=== PATIENT | male | born 1960 | race American Indian/Alaskan Native ===

== ENCOUNTER 2016-09-22 17:07 | Emergency (ER) | payer SELFPAY ==
[2016-09-22 18:20] VITALS: BP 152/106
[2016-09-22] MEDS ORDERED: FLEXERIL PO ONE (18:49)
[2016-09-22] MEDS ORDERED: TORADOL IM ONE (18:49)
--- NOTE | 2016-09-22 19:59 | Emergency Department Report ---
ED Upper Extremity Inj HPI - General Chief Complaint: Extremity Injury, Upper Stated Complaint: SHOULDER PAIN Time Seen by Provider: 09/22/16 18:44 Source: patient Mode of arrival: Ambulatory Limitations: No Limitations - History of Present Illness Initial Comments: right shoulder pain x 1 week hx of chronic shoulder pain same shoulder x 7 yrs, this is an acute exacerbation of same pt denies new injury fall or trauma, pain described as 4/10 aching no weakness no paresthesia no swelling no weakness Complaint: Injury to:: right, shoulder Onset/Timin -: week(s) Other Extremity Injury: Shoulder: Right (no new injury ) Other Injuries: none Handedness: right Place: home Severity scale (0 -10): 4 Improves With: rest Worsens With: movement of extremity Associated Symptoms: denies: weakness, numbness, neck pain, suspects foreign body, nausea/vomiting, heard/felt popping sensat - Related Data Previous Rx's Medication Instructions Recorded Last Taken Type Ibuprofen [Motrin] 800 mg PO Q8H #60 tablet 12/23/13 Unknown Rx traMADol [Ultram 50 MG tab] 50 mg PO Q6HR PRN #30 tablet 12/23/13 Unknown Rx Famotidine [Pepcid] 20 mg PO BID #30 tablet 06/17/15 Unknown Rx Prednisone [predniSONE 10 mg 10 mg PO .TAPER #1 tab.ds.pk 06/17/15 Unknown Rx (6-Day Pack, 21 Tabs)] hydrOXYzine HCL [Atarax] 25 mg PO Q6HR PRN #20 tablet 06/17/15 Unknown Rx Allergies Allergy/AdvReac Type Severity Reaction Status Date / Time No Known Allergies Allergy Verified 09/22/16 18:20 ED Review of Systems ROS: Stated complaint: SHOULDER PAIN Other details as noted in HPI Constitutional: denies: chills, fever Eyes: denies: eye pain, eye discharge, vision change ENT: denies: ear pain, throat pain Respiratory: denies: cough, shortness of breath, wheezing Cardiovascular: denies: chest pain, palpitations Endocrine: no symptoms reported Gastrointestinal: denies: abdominal pain, nausea, diarrhea Genitourinary: denies: urgency, dysuria Musculoskeletal: myalgia. denies: back pain, joint swelling, arthralgia Skin: denies: rash, lesions Neurological: denies: headache, weakness, paresthesias Psychiatric: denies: anxiety, depression Hematological/Lymphatic: denies: easy bleeding, easy bruising ED Past Medical Hx - Past Medical History Hx Hypertension: Yes - Surgical History Past Surgical History?: No - Social History Smoking Status: Never Smoker Substance Use Type: None - Medications Home Medications: Home Medications Medication Instructions Recorded Confirmed Last Taken Type Ibuprofen [Motrin] 800 mg PO Q8H #60 tablet 12/23/13 Unknown Rx traMADol [Ultram 50 MG tab] 50 mg PO Q6HR PRN #30 tablet 12/23/13 Unknown Rx Famotidine [Pepcid] 20 mg PO BID #30 tablet 06/17/15 Unknown Rx Prednisone [predniSONE 10 mg 10 mg PO .TAPER #1 tab.ds.pk 06/17/15 Unknown Rx (6-Day Pack, 21 Tabs)] hydrOXYzine HCL [Atarax] 25 mg PO Q6HR PRN #20 tablet 06/17/15 Unknown Rx ED Physical Exam - General Limitations: No Limitations General appearance: alert, in no apparent distress - Head Head exam: Present: atraumatic, normocephalic - Eye Eye exam: Present: normal appearance - ENT ENT exam: Present: mucous membranes moist - Neck Neck exam: Present: normal inspection - Respiratory Respiratory exam: Present: normal lung sounds bilaterally. Absent: respiratory distress - Cardiovascular Cardiovascular Exam: Present: regular rate, normal rhythm. Absent: systolic murmur, diastolic murmur, rubs, gallop - GI/Abdominal GI/Abdominal exam: Present: soft, normal bowel sounds - Rectal Rectal exam: Present: deferred - Extremities Exam Extremities exam: Present: normal inspection - Expanded Upper Extremity Exam Right Shoulder Exam: Present: normal inspection. Absent: tenderness, swelling, abrasion, laceration, ecchymosis, deformity, crepidus, dislocation, erythema, tenderness over AC joint Elbow exam: Present: normal inspection, full ROM Forearm Wrist exam: Present: normal inspection, full ROM Hand Wrist exam: Present: normal inspection, full ROM Neuro motor exam: Present: wrist extension intact, thumb opposition intact, thumb IP flexion intact, thumb adduction intact, fingers 2-5 abduction intact Neurosensory exam: Present: 2-point discrimination, radial nerve intact, ulnar nerve intact, median nerve intact Vascular: Present: normal capillary refill, radial pulse, brachial pulse, ulnar pulse. Absent: vascular compromise, Pallo, pulse deficit radial art, pulse deficit ulnar art, pulse deficit brachial art - Back Exam Back exam: Present: normal inspection, full ROM. Absent: CVA tenderness (R), CVA tenderness (L), muscle spasm, paraspinal tenderness, vertebral tenderness - Neurological Exam Neurological exam: Present: alert, oriented X3, CN II-XII intact, normal gait, motor sensory deficit, reflexes normal - Psychiatric Psychiatric exam: Present: normal affect, normal mood - Skin Skin exam: Present: warm, dry, intact. 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 Critical care attestation.: If time is entered above; I have spent that time in minutes in the direct care of this critically ill patient, excluding procedure time. ED Disposition Clinical Impression: Chronic right shoulder pain Right shoulder strain Qualifiers: Encounter type: initial encounter Qualified Code(s): S46.911A - Strain of unspecified muscle, fascia and tendon at shoulder and upper arm level, right arm , initial encounter Disposition: TO HOME OR SELFCARE Is pt being admited?: No Does the pt Need Aspirin: No Condition: Good Instructions: Arthralgia (ED) Additional Instructions: follow up with Orthopedics Dr. Mae [phone] Referrals: PRIMARY CARE, [Primary Care Provider] - 3-5 Days Forms: Work/School Release Form(ED) Time of Disposition: 20:01
== END 2016-09-22 20:13 | disposition home or self-care (01) ==
LOC: ED 17:07
DX: S46.911A Strain of unspecified muscle, fascia and tendon at shoulder and upper arm level, right arm, initial encounter (principal); M25.511 Pain in right shoulder; G89.29 Other chronic pain; X58.XXXA Exposure to other specified factors, initial encounter; Y93.9 Activity, unspecified; Y92.9 Unspecified place or not applicable; Y99.9 Unspecified external cause status
CPT/HCPCS: 96372; 99282; J1885

== ENCOUNTER 2018-09-22 21:42 | Emergency (ER) | payer OTHER ==
--- NOTE | 2018-09-22 21:57 | Event Note ---
ED Screening Note Date of service: 09/22/18 Time: 21:52 ED Screening Note: This is a 57 y.o. M. that presents to the ER with right sided abdominal pain for 45 minutes. Reports pain started on back and radiated to right flank. PMH of umbilical hernia This initial assessment/diagnostic orders/clinical plan/treatment(s) is/are subject to change based on patients health status, clinical progression and re- assessment by fellow clinical providers in the ED. Further treatment and workup at subsequent clinical providers discretion. Patient/guardian urged not to elope from the ED as their condition may be serious if not clinically assessed and managed. Initial orders include: Labs and CT of abdomen and pelvis
[2018-09-22 22:08] LABS: Basophils % (Auto) 0.6 % (0.0-1.8); Eosinophils # (Auto) 0.4 K/mm3 (0.0-0.4); Hematocrit 43.4 % (35.5-45.6); Hemoglobin 14.7 gm/dl (11.8-15.2); Lymphocytes # (Auto) 2.8 K/mm3 (1.2-5.4); Lymphocytes % (Auto) 48.4 % (13.4-35.0); Mean Corpuscular HGB Conc 34 % (32-34); Mean Corpuscular Volume 89 fl (84-94); Monocytes # (Auto) 0.6 K/mm3 (0.0-0.8); Monocytes % (Auto) 10.1 % (0.0-7.3); Platelet Count 266 K/mm3 (140-440); Red Blood Count 4.87 M/mm3 (3.65-5.03); Red Cell Distribution Width 14.8 % (13.2-15.2)
[2018-09-22 22:31] LABS: Alanine Aminotransferase 27 units/L (7-56); Albumin 3.8 g/dL (3.9-5); BUN/Creatinine Ratio 11; Blood Urea Nitrogen 13 mg/dL (9-20); Hemolysis Index 6
[2018-09-22] MEDS ORDERED: MORPHINE IV ONE (23:39)
[2018-09-22] MEDS ORDERED: ZOFRAN IV ONE (23:39)
[2018-09-22] MEDS ORDERED: NACL 0.9% 1000 ML 1,000 ML IV ONE (23:39)
[2018-09-23 00:28] LABS: Bilirubin,Urine NEG (Negative); Blood,Urine SM (Negative); Color,Urine Yellow (Yellow); Mucus,Urine FEW /HPF; Protein,Urine <15 mg/dL mg/dL (Negative); Urobilinogen,Urine < 2.0 mg/dL (<2.0)
[2018-09-23] MEDS ORDERED: BENADRYL IV ONE (00:34)
[2018-09-23] MEDS ORDERED: TORADOL IV ONE (00:34)
[2018-09-23] MEDS ORDERED: TORADOL ONE (00:37)
[2018-09-23] MEDS ORDERED: BENADRYL ONE (00:37)
[2018-09-23] MEDS ORDERED: REGLAN IV ONE (00:51)
[2018-09-23] MEDS ORDERED: MORPHINE IV ONE (00:51)
--- NOTE | 2018-09-23 01:11 | Cat Scan Report ---
. CT of the abdomen and pelvis with contrast INDICATION: Right-sided abdominal pain COMPARISON: None FINDINGS: Lung bases are clear. One or 2 small hepatic cysts are seen. Spleen, pancreas, adrenal glan ds and kidneys show no significant abnormalities with small renal cysts seen and a 3 mm nonobstructin g stone in the mid right kidney. No definite gallbladder or biliary tree abnormality. No fluid or jaswant nopathy in the upper abdomen. There is slight vascular calcification without aneurysm. Small umbilica l hernia contains fat. CT of the pelvis shows a normal appendix. There is moderate sigmoid diverticulosis without diverticul itis. Prostate may be minimally enlarged. No pelvic fluid or adenopathy. No bowel obstruction or sign ificant skeletal abnormality. There is slight right hydroureter however down to the right UVJ where t here is a 3 mm stone causing minimal if any obstruction. IMPRESSION: 3 mm right UVJ stone with minimal if any obstruction. Other incidental findings as descri bed. Automated exposure control was utilized to diminish radiation dose. Signer Name: Bladimir Guzmán MD Signed: 09/23/2018 1:06 AM Workstation Name: [id number]
[2018-09-23] MEDS ORDERED: FLOMAX PO ONE (01:38)
--- NOTE | 2018-09-23 01:38 | Emergency Department Report ---
ED Abdominal Pain HPI - General Chief Complaint: Abdominal Pain Stated Complaint: ABD PAIN Time Seen by Provider: 09/22/18 21:51 Source: patient Mode of arrival: Wheelchair Limitations: No Limitations - History of Present Illness Initial Comments: Patient is a 57-year-old -Faroese male with a history of hypertension and kidney stones presents to the ED with complaint of acute onset persistent severe right flank pain that radiates to the right lower quadrant and suprapubic area with nausea and vomiting for the last one now. Patient describes the pain as constant, sharp, persistent and throbbing. Patient denies hematuria, testicular pain, dysuria, urinary frequency and urgency, diarrhea, fever, chills, dizziness, chest pain, shortness of breath, traumatic injury or heavy lifting. MD Complaint: abdominal pain, flank pain, other (nausea and vomiting) -: Sudden, hour(s) (1) Location: RLQ, suprapubic, R flank Radiation: none, RLQ, suprapubic, R flank Migration to: no migration Severity: severe Severity scale (0 -10): 7 Quality: cramping, stabbing, aching, sharp Consistency: constant Improves With: nothing Worsens With: nothing Associated Symptoms: denies other symptoms, nausea, vomiting. denies: diarrhea, fever, chills, hematemesis, hematochezia, melena, hematuria, anorexia - Related Data Previous Rx's Medication Instructions Recorded Last Taken Type Ibuprofen [Motrin] 800 mg PO Q8H #60 tablet 12/23/13 Unknown Rx traMADol [Ultram 50 MG tab] 50 mg PO Q6HR PRN #30 tablet 12/23/13 Unknown Rx Famotidine [Pepcid] 20 mg PO BID #30 tablet 06/17/15 Unknown Rx Prednisone [predniSONE 10 mg 10 mg PO .TAPER #1 tab.ds.pk 06/17/15 Unknown Rx (6-Day Pack, 21 Tabs)] hydrOXYzine HCL [Atarax] 25 mg PO Q6HR PRN #20 tablet 06/17/15 Unknown Rx Cyclobenzaprine [Flexeril] 10 mg PO TID PRN #30 tablet 09/22/16 Unknown Rx Naproxen [Naprosyn TAB] 500 mg PO BID PRN #60 tablet 09/22/16 Unknown Rx Ketorolac [Toradol] 10 mg PO Q8H PRN #20 tablet 09/23/18 Unknown Rx Ondansetron [Zofran Odt] 4 mg PO Q6HR #20 tab.rapdis 09/23/18 Unknown Rx Oxycodone HCl/Acetaminophen 1 each PO Q6HR PRN #12 tablet 09/23/18 Unknown Rx [Percocet 7.5/325 mg] Tamsulosin [Flomax] 0.4 mg PO QDAY #7 cap 09/23/18 Unknown Rx Allergies Allergy/AdvReac Type Severity Reaction Status Date / Time No Known Allergies Allergy Verified 09/22/16 18:20 ED Review of Systems ROS: Stated complaint: ABD PAIN Other details as noted in HPI Comment: All other systems reviewed and negative Constitutional: denies: chills, fever Eyes: denies: eye pain, eye discharge, vision change ENT: denies: ear pain, throat pain Respiratory: denies: cough, shortness of breath, wheezing Cardiovascular: denies: chest pain, palpitations Endocrine: no symptoms reported Gastrointestinal: abdominal pain (right flank, RLQ and suprapubic area), nausea, vomiting. denies: diarrhea Genitourinary: denies: urgency, dysuria Musculoskeletal: denies: back pain, joint swelling, arthralgia Skin: denies: rash, lesions Neurological: denies: headache, weakness, paresthesias Psychiatric: denies: anxiety, depression Hematological/Lymphatic: denies: easy bleeding, easy bruising ED Past Medical Hx - Past Medical History Previous Medical History?: Yes Hx Hypertension: Yes Hx Kidney Stones: Yes Additional medical history: hernia - Surgical History Past Surgical History?: No - Social History Smoking Status: Never Smoker Substance Use Type: None - Medications Home Medications: Home Medications Medication Instructions Recorded Confirmed Last Taken Type Ibuprofen [Motrin] 800 mg PO Q8H #60 tablet 12/23/13 Unknown Rx traMADol [Ultram 50 MG tab] 50 mg PO Q6HR PRN #30 tablet 12/23/13 Unknown Rx Famotidine [Pepcid] 20 mg PO BID #30 tablet 06/17/15 Unknown Rx Prednisone [predniSONE 10 mg 10 mg PO .TAPER #1 tab.ds.pk 06/17/15 Unknown Rx (6-Day Pack, 21 Tabs)] hydrOXYzine HCL [Atarax] 25 mg PO Q6HR PRN #20 tablet 06/17/15 Unknown Rx Cyclobenzaprine [Flexeril] 10 mg PO TID PRN #30 tablet 09/22/16 Unknown Rx Naproxen [Naprosyn TAB] 500 mg PO BID PRN #60 tablet 09/22/16 Unknown Rx Ketorolac [Toradol] 10 mg PO Q8H PRN #20 tablet 09/23/18 Unknown Rx Ondansetron [Zofran Odt] 4 mg PO Q6HR #20 tab.rapdis 09/23/18 Unknown Rx Oxycodone HCl/Acetaminophen 1 each PO Q6HR PRN #12 tablet 09/23/18 Unknown Rx [Percocet 7.5/325 mg] Tamsulosin [Flomax] 0.4 mg PO QDAY #7 cap 09/23/18 Unknown Rx ED Physical Exam - General Limitations: No Limitations General appearance: alert, in no apparent distress - Head Head exam: Present: atraumatic, normocephalic, normal inspection - Eye Eye exam: Present: normal appearance, PERRL, EOMI Pupils: Present: normal accommodation - ENT ENT exam: Present: normal exam, normal orophraynx, mucous membranes moist, TM's normal bilaterally, normal external ear exam - Neck Neck exam: Present: normal inspection, full ROM - Respiratory Respiratory exam: Present: normal lung sounds bilaterally. Absent: respiratory distress, wheezes, rales, rhonchi, stridor, chest wall tenderness, accessory muscle use, decreased breath sounds, prolonged expiratory - Cardiovascular Cardiovascular Exam: Present: regular rate, normal rhythm, normal heart sounds. Absent: systolic murmur, diastolic murmur, rubs, gallop - GI/Abdominal GI/Abdominal exam: Present: soft, tenderness (Palpable right flank, RLQ and suprapubic tenderness), normal bowel sounds. Absent: guarding, rebound, hyperactive bowel sounds, hypoactive bowel sounds, organomegaly - Rectal Rectal exam: Present: deferred - Extremities Exam Extremities exam: Present: normal inspection, full ROM, normal capillary refill - Back Exam Back exam: Present: normal inspection, full ROM. Absent: tenderness, CVA tenderness (R), CVA tenderness (L), muscle spasm - Neurological Exam Neurological exam: Present: alert, oriented X3, CN II-XII intact, normal gait, reflexes normal - Psychiatric Psychiatric exam: Present: normal affect, normal mood - Skin Skin exam: Present: warm, dry, intact, normal color. Absent: rash ED Course Vital Signs 09/22/18 21:50 Temperature 97.5 F L Pulse Rate 88 Respiratory 16 Rate Blood Pressure 163/94 O2 Sat by Pulse 98 Oximetry - Reevaluation(s) Reevaluation #1: 09/23/18 01:51 This is a 57-year-old -Faroese male with a history of hypertension and kidney stones who presented to the ED with acute onset right flank pain for now with nausea and vomiting. In the ED, patient is alert and oriented 3 and is in no acute distress but appears to be in significant pain. Lab test results were reviewed and non-actionable. Patient was treated for pain and nausea and vomiting. Abdomen pelvis CT scan with contrast shows a slight right hydroureter down to the right UVJ where there is a 3 mm stone causing minimal if any obstruction. No definite gallbladder or biliary tree abnormality. No fluid or adenopathy in the upper abdomen. There is slight vascular calcification without aneurysm. Small umbilical hernia contains fat. A normal appendix was seen. There is moderate sigmoid diverticulosis without diverticulitis. Prostate may be minimally enlarged. No pelvic fluid or adenopathy. No bowel obstruction or s ignificant skeletal abnormality. On reevaluation, patient's pain and vomiting controlled on medication. Patient was discharged home on medications and given a referral to a urologist to come in for follow-up in 3-5 days. Patient was Advised to drink plenty of fluids and take pain medications, and is he does not pass the 3 mm kidney stone on the right. Patient was advised to return to the ED immediately if symptoms get worse. ED Medical Decision Making - Lab Data Result diagrams: 09/22/18 21:59 09/22/18 21:59 - Radiology Data Radiology results: report reviewed, image reviewed Findings [facility] [address] [place] [address] Cat Scan Report Signed Patient: TEDDY CHADWICK MR#: [id number] 7 : 1960 Acct:[id number] Age/Sex: 57 / M ADM Date: 09/22/18 Loc: ED Attending Dr: Ordering Physician: JAMES PRADO Date of Service: 09/22/18 Procedure(s): CT abdomen pelvis w con Accession Number(s): [id number] cc: LENORE BRITTONJAMES MCCOY . CT of the abdomen and pelvis with contrast INDICATION: Right-sided abdominal pain COMPARISON: None FINDINGS: Lung bases are clear. One or 2 small hepatic cysts are seen. Spleen, pancreas, adrenal glands and kidneys show no significant abnormalities with small renal cysts seen and a 3 mm nonobstructing stone in the mid right kidney. No definite gallbladder or biliary tree abnormality. No fluid or adenopathy in the upper abdomen. There is slight vascular calcif ication without aneurysm. Small umbilical hernia contains fat. CT of the pelvis shows a normal appendix. There is moderate sigmoid diverticulosis without diverticulitis. Prostate may be minimally enlarged. No pelvic fluid or adenopathy. No bowel obstruction or significant skeletal abnormality. There is slight right hydroureter however down to the right UVJ where there is a 3 mm stone causing minimal if any obstruction. IMPRESSION: 3 mm right UVJ stone with minimal if any obstruction. Other incidental findings as described. Automated exposure control was utilized to diminish radiation dose. Signer Name: Bladimir Guzmán MD Signed: 09/23/2018 1:06 AM Workstation Name: [id number] Transcribed By: RITO Dictated By: Bladimir Guzmán MD Electronically Authenticated By: Bladimir Guzmán MD Signed Date/Time: 09/23/18 0106 - Medical Decision Making This is a 57-year-old -Faroese male with a history of hypertension and kidney stones who presented to the ED with acute onset right flank pain for now with nausea and vomiting. In the ED, patient is alert and oriented 3 and is in no acute distress but appears to be in significant pain. Lab test results were reviewed and non-actionable. Patient was treated for pain and nausea and vomiting. Abdomen pelvis CT scan with contrast shows a slight right hydroureter down to the right UVJ where there is a 3 mm stone causing minimal if any obstruction. No definite gallbladder or biliary tree abnormality. No fluid or adenopathy in the upper abdomen. There is slight vascular calcification without aneurysm. Small umbilical hernia contains fat. A normal appendix was seen. There is moderate sigmoid diverticulosis without diverticulitis. Prostate may be minimally enlarged. No pelvic fluid or adenopathy. No bowel obstruction or significant skeletal abnormality. On reevaluation, patient's pain and vomiting controlled on medication. Patient was discharged home on medications and given a referral to a urologist to come in for follow-up in 3-5 days. Patient was Advised to drink plenty of fluids and take pain medications, and is he does not pass the 3 mm kidney stone on the right. Patient was advised to return to the ED immediately if symptoms get worse. - Differential Diagnosis kidney stones, acute appendicitis, colitis, acute UTI, abdominal pain Critical care attestation.: If time is entered above; I have spent that time in minutes in the direct care of this critically ill patient, excluding procedure time. ED Disposition Clinical Impression: Kidney stone on right side, Nausea and vomiting in adult Abdominal pain Qualifiers: Abdominal location: lower abdomen, unspecified Qualified Code(s): R10.30 - Lower abdominal pain, unspecified Disposition: TO HOME OR SELFCARE Is pt being admited?: No Does the pt Need Aspirin: No Condition: Stable Instructions: Kidney Stones (ED), Acute Abdominal Pain (ED), Acute Nausea and Vomiting (ED) Additional Instructions: Take medications with food, drink plenty of fluids and follow-up with the urologist, Dr. Lundy for follow-up in 3-5 days. Return to the ED immediately if symptoms get worse. Prescriptions: Tamsulosin [Flomax] 0.4 mg PO QDAY #7 cap Oxycodone HCl/Acetaminophen [Percocet 7.5/325 mg] 1 each PO Q6HR PRN #12 tablet PRN Reason: Pain Ketorolac [Toradol] 10 mg PO Q8H PRN #20 tablet PRN Reason: Pain Ondansetron [Zofran Odt] 4 mg PO Q6HR #20 tab.rapdis Referrals: MARILYNN LUNDY MD [Staff Physician] - 3-5 Days Time of Disposition: 01:36 Print Language: GREEK
[2018-09-23 04:04] VITALS: BP 124/68
== END 2018-09-23 02:30 | disposition home or self-care (01) ==
LOC: ED 21:42
DX: N20.0 Calculus of kidney (principal); I10 Essential (primary) hypertension; K42.9 Umbilical hernia without obstruction or gangrene; Z87.442 Personal history of urinary calculi; Z79.899 Other long term (current) drug therapy
CPT/HCPCS: 36415; 74177; 80053; 81001; 83690; 85025; 96361; 96374; 96375; 96376; 99284; J1200; J1885; J2270; J2405; J2765; J7030; Q9967